=== PATIENT | female | born 2000 | race Caucasian/White ===

== ENCOUNTER 2019-01-13 13:46 | Emergency (ER) | payer OTHER ==
--- NOTE | 2019-01-13 14:18 | EDPHY ---
H & P Stated Complaint: Abd pain/poss hernia Time Seen by Provider: 01/13/19 14:09 HPI/ROS: CHIEF COMPLAINT: Periumbilical epigastric pain x3 days HISTORY OF PRESENT ILLNESS: 18-year-old female generally healthy complaining of periumbilical and epigastric pain for the past 3 days. This morning she felt a ventral mass which is tender, reproducible with both palpation. Patient also sneezed and felt exquisite amount of pain in same area. She went to [facility], was referred to a surgeon however because today is Wednesday came to the ER for more rapid evaluation. Denies: Fever, chills, change in bowel movements PRIMARY CARE PROVIDER: REVIEW OF SYSTEMS: 10 systems reviewed and negative with the exception of the elements mentioned in the history of present illness PAST MEDICAL & SURGICAL HISTORY: No pertinent medical or surgical history SOCIAL HISTORY: Student nonsmoker PHYSICAL EXAM (Prior to examination, patient consented to physical exam, hands were washed and my usual and customary physical exam procedures followed) 1) GENERAL: Well-developed, well-nourished, alert and oriented. Appears to be in no acute distress. 2) HEAD: Normocephalic, atraumatic 3) HEENT: Pupils equal, round, reactive to light bilaterally. Sclera anicteric. 4) NECK: Full range of motion, no meningeal signs. 5) LUNGS: Clear auscultation bilaterally, no wheezes, no rhonchi, no retractions. 6) HEART: Regular rate and rhythm, no murmur, no heave, no gallop. 7) ABDOMEN: No guarding, patient is tender to palpation in the epigastric region midline, ventral mass approximately 2 cm in palpated, tender. No visible mass. No overlying skin changes. No Crepitus. Negative McBurney's, negative Larios's, negative Rovsing's, negative peritoneal sign, 8) MUSCULOSKELETAL: Moving all extremities, no focal areas of tenderness, no obvious trauma. No peripheral edema or discoloration. 9) BACK: No CVA tenderness, no midline vertebral tenderness, no fluctuance, no step-off, no obvious trauma, no visual or palpable abnormality. 10) SKIN: No rash, no petechiae. 11) Psychiatric: Patient is oriented X 3, there is no agitation. DIFFERENTIAL DIAGNOSIS: In no particular order including but not limited to acute pancreatitis, acute cholecystitis, incarcerated hernia, strangulated hernia, omental hernia - Personal History LMP (Females 10-55): IUD In Place Current Tetanus/Diphtheria Vaccine: Yes - Medical/Surgical History Hx Asthma: No Hx Chronic Respiratory Disease: No Hx Diabetes: No Hx Cardiac Disease: No Hx Renal Disease: No Hx Cirrhosis: No Hx Alcoholism: No Other PMH: chronic sinusitis, deviated septum - Social History Smoking Status: Never smoked Constitutional: Initial Vital Signs Temperature (C) 36.7 C 01/13/19 13:58 Heart Rate 86 01/13/19 13:58 Respiratory Rate 18 01/13/19 13:58 Blood Pressure 141/92 H 01/13/19 13:58 O2 Sat (%) 98 01/13/19 13:58 O2 Delivery Mode Room Air Allergies/Adverse Reactions: acetaminophen [From Vicodin] Allergy (Verified 01/13/19 14:01) dextromethorphan [From Delsym] Allergy (Verified 01/13/19 14:01) hydrocodone [From Vicodin] Allergy (Verified 01/13/19 14:01) moxifloxacin [From Vigamox] Allergy (Verified 01/13/19 14:01) Home Medications: Medication Instructions Recorded NK [No Known Home Meds] 01/13/19 Medical Decision Making ED Course/Re-evaluation: 3:30 p.m.: Patient was re-evaluated with serial exams. I recommended CT imaging the abdomen pelvis to better evaluate her abdominal mass. She initially had agreed to his CT scan of her abdomen pelvis however at this time she is declining this , primarily due to concerns over finances. She has been informed that hernia is not ruled out at this time and I stressed the importance of return to the ER immediately if she develops worsening pain, if she develops change in stooling habits or inability to pass gas or any overlying skin changes. She has been warned of the risk of undiagnosed hernia including, but not limited to, development of obstruction, gangrene, chronic pain and care. She she verbalized understanding of this. I believe her to have decision-making capacity. I discussed her laboratory studies. Doubt acute pancreatitis, doubt acute cholecystitis. Today is Wednesday. Will plan on discharge of the patient with a a referral to General surgery on-call Dr. Maverick Spencer. - Data Points Laboratory Results: Laboratory Results 01/13/19 14:23 01/13/19 14:23 01/13/19 01/13/19 01/13/19 14:23 14:23 14:23 WBC 6.62 10^3/uL 10^3/uL (3.80-9.50) RBC 5.04 10^6/uL 10^6/uL (4.18-5.33) Hgb 14.9 g/dL g/dL (12.6-16.3) Hct 44.5 % % (38.0-47.0) MCV 88.3 fL fL (81.5-99.8) MCH 29.6 pg pg (27.9-34.1) MCHC 33.5 g/dL g/dL (32.4-36.7) RDW 12.7 % % (11.5-15.2) Plt Count 291 10^3/uL 10^3/uL (150-400) MPV 9.8 fL fL (8.7-11.7) Neut % (Auto) 58.1 % % (39.3-74.2) Lymph % (Auto) 30.1 % % (15.0-45.0) [place] % (Auto) 8.3 % % (4.5-13.0) Eos % (Auto) 2.6 % % (0.6-7.6) Baso % (Auto) 0.6 % % (0.3-1.7) Nucleat RBC Rel Count 0.0 % % (0.0-0.2) Absolute Neuts (auto) 3.85 10^3/uL 10^3/uL (1.70-6.50) Absolute Lymphs (auto) 1.99 10^3/uL 10^3/uL (1.00-3.00) Absolute Monos (auto) 0.55 10^3/uL 10^3/uL (0.30-0.80) Absolute Eos (auto) 0.17 10^3/uL 10^3/uL (0.03-0.40) Absolute Basos (auto) 0.04 10^3/uL 10^3/uL (0.02-0.10) Absolute Nucleated RBC 0.00 10^3/uL 10^3/uL (0-0.01) Immature Gran % 0.3 % % (0.0-1.1) Immature Gran # 0.02 10^3/uL 10^3/uL (0.00-0.10) Sodium 139 mEq/L mEq/L (135-145) Potassium 3.8 mEq/L mEq/L (3.5-5.2) Chloride 104 mEq/L mEq/L (97-110) Carbon Dioxide 24 mEq/l mEq/l (22-31) Anion Gap 11 mEq/L mEq/L (6-14) BUN 14 mg/dL mg/dL (7-23) Creatinine 0.8 mg/dL mg/dL (0.6-1.0) Estimated GFR > 60 Glucose 104 mg/dL H mg/dL (70-100) Calcium 9.6 mg/dL mg/dL (8.5-10.4) Total Bilirubin 0.6 mg/dL mg/dL (0.1-1.4) Conjugated Bilirubin 0.3 mg/dL mg/dL (0.0-0.5) Unconjugated Bilirubin 0.3 mg/dL mg/dL (0.0-1.1) AST 29 IU/L IU/L (14-46) ALT 25 IU/L IU/L (9-52) Alkaline Phosphatase 65 IU/L IU/L (38-126) Total Protein 7.3 g/dL g/dL (6.3-8.2) Albumin 4.6 g/dL g/dL (3.5-5.0) Lipase 67 IU/L IU/L (23-300) Beta HCG, Qual NEGATIVE Departure - Departure Disposition: Home, Routine, Self-Care Clinical Impression: Ventral hernia Qualifiers: Obstruction and gangrene presence: without obstruction or gangrene Qualified Code(s): K43.9 - Ventral hernia without obstruction or gangrene Condition: Good Instructions: Ventral Hernia (ED) Additional Instructions: You have declined CT imaging. Return to the emergency department immediately if you develop fevers, worsening abdominal pain, skin changes, change in bowel movement or change in passing of gas. Referrals: Maverick Spencer MD [Medical Doctor] - 01/16/19 (Dr. Maverick Spencer is a general surgeon)
[2019-01-13 14:41] LABS: PLATELET COUNT 291 10^3/uL (150-400)
[2019-01-13] MEDS ORDERED: IOPAMIDOL (ISOVUE-300) 100 ML BTL ONE (15:02)
[2019-01-13 15:49] VITALS: BP 126/66
== END 2019-01-13 15:49 | disposition home or self-care (01) ==
DX: K43.9 Ventral hernia without obstruction or gangrene (principal)
CPT/HCPCS: Q9967